=== PATIENT | female | born 1970 | race Caucasian/White ===

== ENCOUNTER → 2017-03-07 | Outpatient (CLI) | payer BC, OTHER ==
[~2017-03-07] MED LIST: MELA1TAB5 PO; OXYC-57 PO; TOPI50TA16 PO
--- NOTE | 2017-03-07 15:53 | DIAGNOSTIC IMAGING REPORT ---
L KNEE 1 OR 2 VIEWS CLINICAL HISTORY: LEFT KNEE PAIN pain COMPARISON: 03/06/2017 Discussion: Small joint effusion containing a small component of fat. Fracture of the proximal tibia is again noted but somewhat less visible on the current study. Alignment remains anatomic. IMPRESSION: Nondisplaced fracture proximal tibia. Small joint effusion. Alignment is anatomic. The above report was generated using voice recognition software. It may contain grammatical, syntax or spelling errors. Electronically signed by: Bebeto Martinez M.D. 03/07/2017 3:52 PM Dictated Date/Time: 03/07/2017 3:49 PM
== END | disposition home or self-care (01) ==
LOC: C.RDSM 15:09
PROVIDERS: ATTEND Physician Assistant
DX: S82.102A Unspecified fracture of upper end of left tibia, initial encounter for closed fracture (principal); X58.XXXA Exposure to other specified factors, initial encounter; M25.462 Effusion, left knee

== ENCOUNTER → 2017-04-06 | Outpatient (CLI) | payer BC ==
--- NOTE | 2017-04-06 13:22 | DIAGNOSTIC IMAGING REPORT ---
LEFT KNEE 4 VIEWS HISTORY: FRACTURE OF LEFT TIBIAL SPINE COMPARISON: Left knee 03/16/2017. FINDINGS: No change in the nondisplaced fracture within the proximal tibia which extends to the lateral tibial spine. The fracture line remains indistinct and demonstrates mild sclerosis consistent with a partially healed fracture. This demonstrates progressive healing. Small lipohemarthrosis is also improved. No dislocation. No radiopaque foreign bodies. IMPRESSION: 1. Progressive healing within the nondisplaced proximal tibial fracture. 2. Decrease in size in the small lipohemarthrosis. Electronically signed by: Jacky Read M.D. 04/06/2017 1:20 PM Dictated Date/Time: 04/06/2017 1:18 PM
== END | disposition home or self-care (01) ==
LOC: C.RDSM 13:55
PROVIDERS: ATTEND Physician Assistant
DX: S82.115D Nondisplaced fracture of left tibial spine, subsequent encounter for closed fracture with routine healing (principal); X58.XXXD Exposure to other specified factors, subsequent encounter

== ENCOUNTER → 2017-05-06 | Outpatient (CLI) | payer BC ==
[~2017-05-06] MED LIST changes: +CYCL10TA6 PO; +HYDR-5688 PO
--- NOTE | 2017-05-06 11:47 | DIAGNOSTIC IMAGING REPORT ---
L KNEE 4 OR MORE CLINICAL HISTORY: Follow-up fracture. COMPARISON: Left knee radiographs April 06, 2017. FINDINGS: Exam is mildly compromised by motion artifact. Lipohemarthrosis has resolved since prior exam of April 06, 2017. There has been progressive healing of the proximal left tibial fracture with a vertical band of sclerosis at fracture site. Fracture line through the lateral tibial spine persist. 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 IMPRESSION: 1. Progressive healing of the nondisplaced proximal left tibial fracture. Fracture line through base of lateral tibial spine remains evident. 2. Interval resolution of left knee joint effusion. 3. 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 Electronically signed by: Jack Walker M.D. 05/06/2017 11:45 AM Dictated Date/Time: 05/06/2017 11:42 AM
== END | disposition home or self-care (01) ==
LOC: C.RDSM 13:25
PROVIDERS: ATTEND Physician Assistant
DX: S82.102D Unspecified fracture of upper end of left tibia, subsequent encounter for closed fracture with routine healing (principal); X58.XXXD Exposure to other specified factors, subsequent encounter; M85.862 Other specified disorders of bone density and structure, left lower leg

== ENCOUNTER → 2017-06-03 | Outpatient (CLI) | payer BC, OTHER ==
[~2017-06-03] MED LIST changes: -CYCL10TA6 PO; -HYDR-5688 PO
--- NOTE | 2017-06-03 11:57 | DIAGNOSTIC IMAGING REPORT ---
L KNEE 4 OR MORE CLINICAL HISTORY: FRACTURE OF LEFT TIBIAL SPINE trauma. Pain. COMPARISON: 05/06/2017 DISCUSSION: Progressive osteopenia. Near complete healing of the proximal tibial fracture. No well-defined acute fracture lines current time. No significant joint effusion. There is no evidence for soft tissue swelling. IMPRESSION: Progressive osteopenia consistent with disuse osteopenia. Progressive healing of the proximal tibial fracture with no well-defined fracture line at the current time. The above report was generated using voice recognition software. It may contain grammatical, syntax or spelling errors. Electronically signed by: Bebeto Martinez M.D. 06/03/2017 11:55 AM Dictated Date/Time: 06/03/2017 11:54 AM
== END | disposition home or self-care (01) ==
LOC: C.RDSM 08:00
PROVIDERS: ATTEND Physician Assistant
DX: S82.115D Nondisplaced fracture of left tibial spine, subsequent encounter for closed fracture with routine healing (principal); X58.XXXD Exposure to other specified factors, subsequent encounter; M85.862 Other specified disorders of bone density and structure, left lower leg

== ENCOUNTER 2017-12-04 09:28 | Emergency (ER) | payer OTHER ==
[~2017-12-04] VITALS: Ht 170.2 cm; Wt 103.4 kg
[2017-12-04 09:35] VITALS: TEMP 36.9; Ht 170.2 cm; Wt 103.4 kg
[2017-12-04] MEDS ORDERED: HYDROCODONE/ACETAMIN 5/325MG TAB PO STA (10:03)
[2017-12-04] MEDS ORDERED: CYCLOBENZAPRINE HCL 10 MG TAB PO STA (10:03)
[2017-12-04] MEDS ORDERED: KETOROLAC TROMETHAMINE 60 MG/2 ML VIAL IM STA (10:03)
--- NOTE | 2017-12-04 10:43 | DIAGNOSTIC IMAGING REPORT ---
L-SPINE MIN 4 VIEWS ROUTINE HISTORY: Pain Low back pain COMPARISON: 08/10/2014 FINDINGS: There is no fracture. No subluxation. Moderate degenerative disc changes throughout. Moderate reactive osteophytic changes throughout. All findings are similar compared to the prior study. No new or interval finding. IMPRESSION: Moderate generalized degenerative change. No acute process. No change from the prior study. The above report was generated using voice recognition software. It may contain grammatical, syntax or spelling errors. Electronically signed by: Bebeto Martinez M.D. 12/04/2017 10:42 AM Dictated Date/Time: 12/04/2017 10:41 AM
--- NOTE | 2017-12-04 10:48 | EMERGENCY ROOM VISIT NOTE ---
ED Visit Note First contact with patient: 09:54 CHIEF COMPLAINT: Low back pain HISTORY OF PRESENT ILLNESS: This 47-year-old female presents to ER with chief complaint of low back pain. She states the pain started evening and got worse on Tuesday. She states then yesterday it was slightly better and then it got worse this morning. She describes it as achy and sharp pain across the entire lower back. She denies any pain radiating down her legs or any numbness and tingling in her lower legs. The patient denies a known injury or fall. The patient denies any history of chronic back pain. The patient has not taking anything for pain today. Patient denies any loss of bowel or bladder control. The patient denies any saddle anesthesia. The patient denies any urinary symptoms of frequency, urgency, dysuria or hematuria. REVIEW OF SYSTEMS: 6 system review was performed and was negative unless stated otherwise in history of present illness. PMH: The patient is healthy; migraines SOCIAL HISTORY: Patient lives with her . The patient admits to tobacco use but denies any alcohol use. PHYSICAL EXAM: Vital Signs were reviewed: Reviewed Nurse's notes and agree. GENERAL: 47-year-old female appears in no acute distress. MENTAL STATUS: Alert and oriented 3. LUMBAR SPINE: No gross bony abnormality noted. Patient is tender to palpation over the spinous processes. She is tender to palpation over the paravertebral regions bilaterally. She has full range of motion of the lumbar spine with pain elicited with flexion, extension. Muscle strength is 5 out of 5 bilateral lower extremities and symmetrical. NEURO: Patient is able to heel and toe walk without difficulty. I lateral patellar and Achilles reflexes are 2+. Sensation is intact to pinprick bilateral lower extremities. Negative straight leg raise bilaterally. EMERGENCY DEPARTMENT COURSE: The patient was evaluated. Patient's EMR medication list were reviewed. The patient was given Flexeril 10 mg p.o., Toradol 60 mg IM and Willard 5/325 mg 2 tablets p.o. for pain. X-ray of the lumbar spine was ordered interpreted by the radiologist and myself. DIAGNOSTICS:L-SPINE MIN 4 VIEWS ROUTINE HISTORY: Pain Low back pain COMPARISON: 08/10/2014 FINDINGS: There is no fracture. No subluxation. Moderate degenerative disc changes throughout. Moderate reactive osteophytic changes throughout. All findings are similar compared to the prior study. No new or interval finding. IMPRESSION: Moderate generalized degenerative change. No acute process. No change from the prior study. The above report was generated using voice recognition software. It may contain grammatical, syntax or spelling errors. Electronically signed by: Bebeto Martinez M.D. The patient was informed of the findings. The patient was discharged home in stable condition with her driving. DIAGNOSIS: Lumbar strain DISCHARGE INSTRUCTIONS AND TREATMENT: Ibuprofen 600 mg every 6 hours with food for pain. Take Willard as needed for more severe pain. Do not drive while taking the Willard. Take Flexeril as directed. Do not drive while taking the Flexeril. Avoid staying in any one position for an extended period of time. If symptoms persist or worsen, follow up with your family doctor for referral for additional testing. Problem List Medical Problems: (1) Diabetes Status: Chronic (2) Hypertension Status: Chronic (3) Migraine Status: Chronic Current/Historical Medications Scheduled Melatonin (Kp Melatonin), 1 TAB PO HS Topiramate (Topamax), 50 MG PO BID Scheduled PRN Oxycodone/Acetaminophen 5MG/325MG (Percocet 5MG/325MG), 1 TABLET PO Q6H PRN for Pain Allergies Coded Allergies: Amitriptyline (Unverified Allergy, Severe, RASH, 03/06/17) Gabapentin (Unverified Allergy, Mild, 03/06/17) Amoxicillin (Verified Allergy, Unknown, ., 03/06/17) Penicillins (Verified Allergy, Unknown, 03/06/17) Vital Signs Date Time Temp Pulse Resp B/P (MAP) Pulse Ox O2 Delivery O2 Flow Rate FiO2 12/04/17 09:35 36.9 101 16 122/84 96 Room Air Medications Administered Medications (Trade) Dose Ordered Sig/Althea Route Start Time Stop Time Status Last Admin Dose Admin Ketorolac Tromethamine (Toradol Inj) 60 mg NOW STAT IM 12/04/17 10:03 12/04/17 10:05 DC 12/04/17 10:20 60 MG Cyclobenzaprine HCl (Flexeril Tab) 10 mg NOW STAT PO 12/04/17 10:03 12/04/17 10:05 DC 12/04/17 10:19 10 MG Acetaminophen/ Hydrocodone Bitart (Willard 5/325 Tab) 2 tab NOW STAT PO 12/04/17 10:03 12/04/17 10:05 DC 12/04/17 10:19 2 TAB Departure Information Referrals Chun Terrell M.D. (PCP) Patient Instructions [facility]
[2017-12-04] MEDS ORDERED: CYCL10TA6 PO (10:49)
[2017-12-04] MEDS ORDERED: HYDR-5688 PO (10:51)
[2017-12-04 11:02] VITALS: BP 129/90; PULSE 80; O2SAT 95
== END 2017-12-04 11:05 | disposition home or self-care (01) ==
LOC: C.EDB 09:29
DX: S39.012A Strain of muscle, fascia and tendon of lower back, initial encounter (principal); X58.XXXA Exposure to other specified factors, initial encounter; I10 Essential (primary) hypertension; E11.9 Type 2 diabetes mellitus without complications; G43.909 Migraine, unspecified, not intractable, without status migrainosus; Z88.8 Allergy status to other drugs, medicaments and biological substances; Z88.0 Allergy status to penicillin; Z79.899 Other long term (current) drug therapy

== ENCOUNTER 2025-03-18 10:42 | Inpatient (IN) ==
--- NOTE | 2025-03-18 11:01 | Emergency Department Note ---
History of Present Illness General Chief complaint: Flu Like Symptoms Stated complaint: CHEST PAIN, HEADACHE, COUGH Time Seen by Provider: 03/18/25 10:48 History of Present Illness Maximum Pain Intensity: 6 This is a 54-year-old female that presents to the emergency department via private vehicle with complaints of "chest pain, headache, cough". Patient notes that she has been experiencing chest tightness ongoing now for quite some time and was diagnosed with an aortic aneurysm by CT this past summer. However, over the past few days notes an itchiness to the throat, feeling nervous, "shaky", cough, dyspnea and overall feeling unwell. She notes that her is sick and with similar symptoms. No hx of PE or MT per patient. No hemoptysis. Home Medications Medication Instructions Recorded Confirmed Type galcanezumab-gnlm 120 mg/mL 120 mg subcut MONTHLY 07/04/23 03/18/25 History subcutaneous pen injector (Emgality Pen) citalopram 20 mg tablet 20 mg PO DAILY #30 tabs 11/26/24 03/18/25 Rx duloxetine 60 mg capsule,delayed 60 mg PO DAILY 03/18/25 03/18/25 History release rosuvastatin 5 mg tablet 0 mg PO DAILY 03/18/25 03/18/25 History Allergies Allergy/AdvReac Type Severity Reaction Status Date / Time amitriptyline Allergy Severe RASH Unverified 12/06/24 07:32 gabapentin Allergy Mild Unverified 12/06/24 07:32 amoxicillin Allergy Unknown . Verified 12/06/24 07:32 Penicillins Allergy Unknown Verified 12/06/24 07:32 Past Med/Surg History Problem List (Updated 03/18/25 @ 16:41 by Yovani Varela PA-C) Adenovirus infection (Acute) Dyspnea (Acute) Pneumonia (Acute) Elevated hemoglobin Chronic pain of left knee Sacroiliitis Lumbar disc herniation with radiculopathy L4-5 central extrusion with superior migration HLD (hyperlipidemia) Class 2 obesity due to excess calories with body mass index (BMI) of 37.0 to 37.9 in adult Lumbar radiculopathy, chronic Hepatosplenomegaly Elevated fasting glucose Low back pain (Chronic) Migraine (Chronic) Medical History Spinal stenosis, lumbar region with neurogenic claudication Pyelonephritis Fracture of proximal end of tibia Epigastric abdominal pain Diarrhea Chest pain Acute bronchitis Abdominal pain Hypertension Social History Smoking Status: Current every day smoker Tobacco Type: Cigarettes Age Started Using Tobacco: 13; packs per day: 20; Second Hand Exposure: Yes; Do You Dip or Chew Tobacco: No; Hx Alcohol Use: No ([place] on a holiday) Hx Substance Use: No Preferred Language: Arabic Visual Impairment: No Limitations Hearing Ability: Normal Beliefs That Will Affect Care: None marital status: Current Living Situation: Spouse current occupational status: unemployed current occupation: house Feels Safe at Home: Yes Childhood Exposure to Second-Hand Smoke: Yes Diet: regular caffeine: Yes Dental Care, Regularly: Yes Physical Activity Frequency: 1-2 Times per Week Seatbelt Use: always Sunscreen Use: Yes Do you think of yourself as: straight/heterosexual Gender Identity: Female Assistive Devices: Other Review of Systems A total of 10 systems reviewed and were otherwise negative Physical Exam Vital Signs Vital Signs - 24 hr 03/18/25 10:44 03/18/25 11:20 03/18/25 12:06 Temperature 37.3 C Temperature Source Oral Pulse Rate 111 H 110 H 103 H Pulse Rate [Apical] Pulse Rhythm [Apical] Pulse Strength [Apical] Respiratory Rate 18 36 H Respiratory Effort / Characteristics Non-Labored Respiratory Depth Normal Respiratory Pattern Blood Pressure 137/71 Blood Pressure [Left Arm] Blood Pressure Mean 93 Blood Pressure Mean [Left Arm] Blood Pressure Position [Left Arm] Pulse Oximetry 96 95 Oxygen Delivery Method Room Air Room Air Sepsis Recent Fever Within 48 Hours No Sepsis New/Unexplained Change in Mental Status No Sepsis Action Taken by Nursing No Action Required 03/18/25 12:42 03/18/25 14:00 03/18/25 16:00 Temperature Temperature Source Pulse Rate Pulse Rate [Apical] 109 H 98 H 107 H Pulse Rhythm [Apical] Regular Regular Regular Pulse Strength [Apical] Normal Normal Normal Respiratory Rate 23 42 H 22 Respiratory Effort / Characteristics Spontaneous Spontaneous Non-Labored Spontaneous Respiratory Depth Normal Normal Respiratory Pattern Regular Blood Pressure Blood Pressure [Left Arm] 156/92 H 137/83 148/106 H Blood Pressure Mean Blood Pressure Mean [Left Arm] 113 101 120 Blood Pressure Position [Left Arm] Sitting Sitting Pulse Oximetry 94 96 96 Oxygen Delivery Method Room Air Room Air Room Air Sepsis Recent Fever Within 48 Hours Sepsis New/Unexplained Change in Mental Status Sepsis Action Taken by Nursing VITAL SIGNS - Vital signs and nursing notes were reviewed. Stable but tachycardic and tachypneic. No hypotension. GENERAL -54-year-old female appearing her stated age who is in no acute distress. Communicates well with provider and answers questions appropriately. SKIN - Without rashes. No meningeal or petechial rash. HEAD - NC/AT. EYES - PERRL with EOMI bilaterally. EARS - No deformities of external structures noted on gross examination bilaterally. External auditory canals without discharge or otorrhea. Tympanic membranes pearly cooper without retraction or bulging. No fluid or purulent material visualized behind the TM. Handle of malleus, umbo, cone of light, pars tensa/flaccid all easily visualized. NOSE - Midline and without cyanosis. No epistaxis or purulent drainage noted. Septum midline without deviation or septal hematoma noted. MOUTH/OROPHARYNX - Without perioral cyanosis. Buccal mucosa pink and moist and without leukoplakia. Tongue midline with equal elevation of palate bilaterally. No tonsillar hypertrophy, erythema, or exudates noted. Good dentition noted. NECK - Neck with FROM. Supple to palpation. No lymphadenopathy noted. No nuchal rigidity. LUNGS -mild diminished breath sounds bilaterally. No wheezing. CARDIAC - RRR EXTREMITIES - No clubbing or peripheral cyanosis. +5/5 strength noted in UE/LE bilaterally. NEUROLOGIC - Cranial nerves II through XII grossly intact. PSYCH -alert, oriented and pleasant on exam. Course Administered Medications Discontinued Medications Ceftriaxone Sodium (Rocephin) 2,000 mg in 50 mls @ 100 mls/hr IV NOW STA Stop: 03/18/25 14:30 Last Infusion: 03/18/25 15:20 Dose: Infused Documented By: orin Admin: 03/18/25 14:43 Dose: 100 mls/hr Documented By: orin Azithromycin (Zithromax) 500 mg in 255 mls @ 127.5 mls/hr IV NOW ONE Stop: 03/18/25 16:00 Last Admin: 03/18/25 15:13 Dose: 127.5 mls/hr Documented By: orin Sodium Chloride (Nss) 1,000 mls @ 999 mls/hr IV .Q1H1M ONE Stop: 03/18/25 15:02 Last Infusion: 03/18/25 15:49 Dose: Infused Documented By: orin Admin: 03/18/25 14:43 Dose: 999 mls/hr Documented By: orin Ioversol (Optiray 320 125ml) 112 ml IV ONCE ONE Stop: 03/18/25 13:02 Last Admin: 03/18/25 13:02 Dose: 112 ml Documented By: JOSEPH Medical Decision Making Laboratory Data 03/18/25 11:33 03/18/25 11:33 Lab Results 03/18/25 03/18/25 Range/Units 11:33 11:38 WBC 8.74 (4.8-10.8) K/ul RBC 4.93 (4.20-5.40) M/uL Hgb 15.8 (12.0-16.0) g/dl Hct 45.2 (37.0-47.0) % MCV 91.7 (80.0-100.0) fL MCH 32.0 (25.0-34.0) pg MCHC 35.0 (32.0-36.0) g/dL RDW Std Deviation 47.8 H (36.4-46.3) fL RDW Coeff of Linda 14.1 (11.5-14.5) % Plt Count 163 (130-400) K/uL MPV 10.4 (9.4-12.4) fL Immature Gran % (Auto) 0.6 % Neut % (Auto) 80.6 % Lymph % (Auto) 9.8 % [place] % (Auto) 8.6 % Eos % (Auto) 0.2 % Baso % (Auto) 0.2 % Neut # (Auto) 7.04 H (1.40-6.50) K/uL Lymph # (Auto) 0.86 L (1.20-3.40) K/uL [place] # (Auto) 0.75 H (0.11-0.59) K/uL Eos # (Auto) 0.02 (0.00-0.50) K/uL Baso # (Auto) 0.02 (0.00-0.20) K/uL Immature Gran # (Auto) 0.05 (0.01-0.20) K/uL PT 9.9 (9.0-12.0) Seconds INR 0.9 (0.9-1.1) APTT 27 (21-31) Seconds PTT Ratio 1.0 Sodium 135 L (136-145) mmol/L Potassium 3.9 (3.5-5.1) mmol/L Chloride 98 (98-107) mmol/L Carbon Dioxide 28 (21-32) mmol/L Anion Gap 9 (3-11) BUN 10 (6-23) mg/dl Creatinine 0.62 (0.6-1.2) mg/dl Est Cr Clr Drug Dosing 125.7 ml/min eGFR 105.10 BUN/Creatinine Ratio 16.1 (10-20) Glucose 96 (70-99(Fasting)) mg/dl Calcium 8.8 (8.6-10.3) mg/dl Magnesium 1.7 (1.7-2.4) mg/dl Total Bilirubin 0.4 (0.2-1.0) mg/dl AST 19 (13-39) U/L ALT 17 (7-52) U/L Alkaline Phosphatase 76 (34-104) U/L Troponin I High Sens 3.6 (0-14) pg/ml Total Protein 7.0 (6.0-8.3) gm/dl Albumin 3.9 (3.4-5.0) gm/dl Globulin 3.1 (2.5-4.0) gm/dl Albumin/Globulin Ratio 1.3 (0.9-2) Lipase 7 L (11-82) U/L Procalcitonin < 0.02 (0-0.5) ng/ml TSH 1.060 (0.300-4.500) uIu/ml Adenovirus (PCR) DETECTED A (NotDetected) B. pertussis DNA (PCR) Not Detected (NotDetected) B.parapertussis DNA PCR Not Detected (NotDetected) C. pneumoniae DNA (PCR) Not Detected (NotDetected) Coronavirus OC43 (PCR) Not Detected (NotDetected) Coronavirus HKU1 (PCR) Not Detected (NotDetected) Coronavirus 229E (PCR) Not Detected (NotDetected) SARS-CoV-2 (PCR) Not Detected (NotDetected) Coronavirus NL63 (PCR) Not Detected (NotDetected) Human Metapneumovir PCR Not Detected (NotDetected) Influenza Type A (PCR) Not Detected (NotDetected) Influenza Type B (PCR) Not Detected (NotDetected) M. pneumoniae (PCR) Not Detected (NotDetected) Parainfluenza 1 (PCR) Not Detected (NotDetected) Parainfluenza 2 (PCR) Not Detected (NotDetected) Parainfluenza 3 (PCR) Not Detected (NotDetected) Parainfluenza 4 (PCR) Not Detected (NotDetected) RSV (PCR) Not Detected (NotDetected) Entero/Rhino (PCR) Not Detected (NotDetected) Imaging Data Radiologist's Impression: Chest X-Ray 03/18/25 10:50 XR chest 1V portable CLINICAL HISTORY: chest pain COMPARISON STUDY: 11/20/2024 FINDINGS: Heart size and pulmonary vasculature are normal. No consolidation or pleural effusion. No pneumothorax. IMPRESSION: No acute findings. ACT 112: Negative or not required by law. Electronically signed by: Jonathan Sandhu M.D. 03/18/2025 11:27 AM Chest CTA 03/18/25 12:42 CT angio chest dissec wo/w con CLINICAL HISTORY: chest pain COMPARISON STUDY: 11/20/2024 FINDINGS: There are interval small areas of patchy consolidation anterior left lower lobe and medial right middle lobe which have morphology consistent with pneumonia. No other consolidation or pleural effusion seen. No pneumothorax. There is stable ectasia of the ascending thoracic aorta measuring 4.1 cm diameter which narrows smoothly to normal caliber of 2.3 cm at the proximal descending thoracic aorta. There is no thoracic aortic dissection. There are scattered atherosclerotic calcifications at the aorta. There are diffuse coronary artery calcifications. No pulmonary embolism seen. There is mild mediastinal and left hilar adenopathy. No pericardial effusion. Stable right adrenal adenoma measuring 2.7 cm. No acute osseous findings. IMPRESSION: 1. Early bilateral pneumonia with likely mild reactive adenopathy. Follow-up chest CT recommended in 3 months to make sure this completely resolves without underlying pulmonary nodule. 2. No other acute findings seen. Otherwise as described. ACT 112: Positive. There are findings on this exam that require communication between the performing entity and the patient following Patient Test Result Information Act ([place] Act 112) guidelines. Electronically signed by: Jonathan Sandhu M.D. 03/18/2025 1:37 PM MDM Narrative Patient was seen and evaluated as above in room B04b. Review was performed of triage nursing notes and vital signs. I did review pertinent previous visits and patient history. After obtaining a thorough history and physical examination the above work up was performed. Patient presents to us today with the above symptoms. Please see HPI for full details. In short, she has dyspnea, cough and feels unwell. She is tachypneic and tachycardic on arrival. EKG per my interpretation reveals normal sinus rhythm at a rate of 79 bpm. QTc 421. QRS 78. No ST elevation. Options of care were discussed with the patient. IV access was established. IV fluids ordered. Labs were drawn. No leukocytosis or concerning anemia. Coags normal. Mild hyponatremia 135. No evidence of kidney or liver failure. Troponin within normal range. Lipase not elevated. Procalcitonin undetectable at less than 0.02 making sepsis less likely. TSH was euthyroid state. BioFire positive for adenovirus which is felt to be contributory at this time. A chest x-ray was obtained and was overall negative. CTA of the chest was obtained to further assess the patient's chest pain, dyspnea in the setting of known aortic aneurysm. Results as above. Early bilateral pneumonia noted. No other acute findings. The ectasia of the ascending thoracic aorta was to be stable. Although the patient's pneumonia may be viral in nature, noting the patient's tachycardia and tachypneic state, will cover for potential superimposed bacterial infection. IV ceftriaxone and IV azithromycin ordered. I reviewed benefit versus risk of these antibiotics with the patient. No reported allergy to ceftriaxone or azithromycin. Benefit felt to outweigh risk. At this time I do believe that further evaluation and management the inpatient setting is warranted. Case discussed with hospitalist service. Please refer to further documentation regarding her stay GCS: 15 In the evaluation and treatment of this patient the following differential diagnoses were entertained: Pneumonia, MT, PE, dissection, among others Impression & Plan Pneumonia, Dyspnea, Adenovirus infection Discharge Plan Visit Data Chief Complaint: Flu Like Symptoms Stated Complaint: CHEST PAIN, HEADACHE, COUGH ED Provider: Sherman Yin ED Midlevel Provider: Yovani Varela Discharge Problem: Pneumonia, Dyspnea, Adenovirus infection Patient Disposition: Admitted As Inpatient Condition: Good Forms Stand Alone Forms: My [facility] Prescriptions Prescriptions: No Action Emgality Pen 120 mg/mL pen injector 120 mg subcut MONTHLY citalopram 20 mg tablet 20 mg PO DAILY Qty: 30 5RF duloxetine 60 mg capsule,delayed release(DR/EC) 60 mg PO DAILY rosuvastatin 5 mg tablet 0 mg PO DAILY Patient Comments: 03/18- last filled 08/02 30 day supply #30 Referrals Referrals: Dewayne Barillas DO [Primary Care Provider] -
--- NOTE | 2025-03-18 11:28 | XRay Report ---
XR chest 1V portable CLINICAL HISTORY: chest pain COMPARISON STUDY: 11/20/2024 FINDINGS: Heart size and pulmonary vasculature are normal. No consolidation or pleural effusion. No p neumothorax. IMPRESSION: No acute findings. ACT 112: Negative or not required by law. Electronically signed by: Jonathan Sandhu M.D. 03/18/2025 11:27 AM
[2025-03-18 11:49] LABS: Hematocrit (blood only) 45.2 % (37.0-47.0); Hemoglobin 15.8 g/dl (12.0-16.0); Immature Granulocytes # (auto) 0.05 K/uL (0.01-0.20); Immature Granulocytes % (auto) 0.6 %; Mean Corpuscular Hemoglobin 32.0 pg (25.0-34.0); Mean Corpuscular Volume 91.7 fL (80.0-100.0); Platelet Count 163 K/uL (130-400); RDW Standard Deviation 47.8 fL (36.4-46.3); Red Blood Count 4.93 M/uL (4.20-5.40); White Blood Count 8.74 K/ul (4.8-10.8)
[2025-03-18 12:03] LABS: INR 0.9 (0.9-1.1); Partial Thromboplastin Time 27 Seconds (21-31); Prothrombin Time 9.9 Seconds (9.0-12.0)
[2025-03-18 12:22] LABS: Albumin Level 3.9 gm/dl (3.4-5.0); Anion Gap 9.0 (3-11); Bilirubin,Total 0.4 mg/dl (0.2-1.0); Calcium 8.8 mg/dl (8.6-10.3); Carbon Dioxide 28.0 mmol/L (21-32); Chloride 98.0 mmol/L (98-107); Magnesium 1.7 mg/dl (1.7-2.4); Potassium 3.9 mmol/L (3.5-5.1); Sodium 135.0 mmol/L (136-145)
[2025-03-18 12:28] LABS: Alanine Aminotransferase 17.0 U/L (7-52); Albumin Globulin Ratio 1.3 (0.9-2); Alkaline Phosphatase 76.0 U/L (34-104); Blood Urea Nitrogen 10.0 mg/dl (6-23); Creatinine Clr Calc Pharmacy 125.7 ml/min; Globulin 3.1 gm/dl (2.5-4.0); Glucose 96.0 mg/dl (70-99(Fasting)); Lipase 7.0 U/L (11-82); Total Protein 7.0 gm/dl (6.0-8.3)
[2025-03-18 12:31] LABS: Thyroid Stimulating Hormone 1.06 uIu/ml (0.300-4.500)
[2025-03-18] MEDS: OPTIRAY 320 125ml IV ONE (13:02)
[2025-03-18 13:16] LABS: Chlamydia pneumoniae PCR Not Detected (NotDetected); Coronavirus 229E PCR Not Detected (NotDetected); Coronavirus CoV-2 (COVID19)PCR Not Detected (NotDetected); Coronavirus HKU1 PCR Not Detected (NotDetected); Coronavirus NL63 PCR Not Detected (NotDetected); Coronavirus OC43PCR Not Detected (NotDetected); Human Metapneumovirus PCR Not Detected (NotDetected); Parainfluenza Virus 1 PCR Not Detected (NotDetected); Parainfluenza Virus 2 PCR Not Detected (NotDetected); Parainfluenza Virus 3 PCR Not Detected (NotDetected); Parainfluenza Virus 4 PCR Not Detected (NotDetected); Respiratory Syncytial VirusPCR Not Detected (NotDetected); Rhinovirus/Enterovirus PCR Not Detected (NotDetected)
--- NOTE | 2025-03-18 13:39 | CT Scan Report ---
CT angio chest dissec wo/w con CLINICAL HISTORY: chest pain COMPARISON STUDY: 11/20/2024 FINDINGS: There are interval small areas of patchy consolidation anterior left lower lobe and medial right middle lobe which have morphology consistent with pneumonia. No other consolidation or pleural effusion seen. No pneumothorax. There is stable ectasia of the ascending thoracic aorta measuring 4.1 cm diameter which narrows smoothly to normal caliber of 2.3 cm at the proximal descending thoracic a nannette. There is no thoracic aortic dissection. There are scattered atherosclerotic calcifications at t he aorta. There are diffuse coronary artery calcifications. No pulmonary embolism seen. There is mild mediastinal and left hilar adenopathy. No pericardial effusion. Stable right adrenal adenoma measuri ng 2.7 cm. No acute osseous findings. IMPRESSION: 1. Early bilateral pneumonia with likely mild reactive adenopathy. Follow-up chest CT recommended in 3 months to make sure this completely resolves without underlying pulmonary nodule. 2. No other acute findings seen. Otherwise as described. ACT 112: Positive. There are findings on this exam that require communication between the performing entity and the patient following Patient Test Result Information Act ([place] Act 112) guidelines. Electronically signed by: Jonathan Sandhu M.D. 03/18/2025 1:37 PM
[2025-03-18] MEDS: SODIUM CHLORIDE 0.9% 1,000 ML IV ONE (14:43)
[2025-03-18] MEDS: cefTRIAXone SODIUM 2,000 MG/50 ML BAG IV STA (14:43)
[2025-03-18] MEDS: AZITHROMYCIN 500 MG/255 ML BAG IV ONE (15:13)
--- NOTE | 2025-03-18 16:45 | History & Physical Report ---
Date of Service March 18, 2025 Assessment & Plan (1) Pneumonia: (2) Adenovirus infection: Plan 54-year-old female presented with tachypnea and respiratory distress with a history of a adeno virus on [employer] and concern for multifocal pneumonia on imaging Patient is significant tobacco abuse and consider this to be possibly bronchial asthma or a COPD exacerbation with undiagnosed COPD #Multifocal pneumonia. Patiently placed on ceftriaxone and azithromycin to cover atypical organisms. Patient given Solu-Medrol due to her pulmonary exam showing fairly significant changes with decreased excursion and air exchange. Should be on isolation for respiratory adenovirus Patient has dyslipidemia will have her previously was statin held at this time #Depression patient continues on duloxetine escitalopram DVT prevention is Lovenox History of Present Illness Primary Care Provider: Dewayne Barillas DO 54-year-old female with a history of significant tobacco abuse who presents with chest pain headache and cough. Patient was significantly tachypneic and mildly hypoxic. Patient says that she has been ill since the end of February. Imaging did not show any significant focal lobar pneumonia but concerns for the beginning of bilateral multilobar pneumonia she did test positive for adenovirus on a [employer] viral screen. She subsequently feels improved was initiated on ceftriaxone and azithromycin in the emergency department. CT angiography of the emergency department shows no thoracic aortic dissection and the thoracic aorta measures 4.1 cm with diameter but no significant aneurysm Allergies Allergy/AdvReac Type Severity Reaction Status Date / Time amitriptyline Allergy Severe RASH Unverified 12/06/24 07:32 gabapentin Allergy Mild Unverified 12/06/24 07:32 amoxicillin Allergy Unknown . Verified 12/06/24 07:32 Penicillins Allergy Unknown Verified 12/06/24 07:32 Home Medications Medication Instructions Recorded Confirmed Type galcanezumab-gnlm 120 mg/mL 120 mg subcut MONTHLY 07/04/23 03/18/25 History subcutaneous pen injector (Emgality Pen) citalopram 20 mg tablet 20 mg PO DAILY #30 tabs 11/26/24 03/18/25 Rx duloxetine 60 mg capsule,delayed 60 mg PO DAILY 03/18/25 03/18/25 History release rosuvastatin 5 mg tablet 0 mg PO DAILY 03/18/25 03/18/25 History Past Med/Surg History Problem List (Updated 03/18/25 @ 16:41 by Yovani Varela PA-C) Adenovirus infection (Acute) Dyspnea (Acute) Pneumonia (Acute) Elevated hemoglobin Chronic pain of left knee Sacroiliitis Lumbar disc herniation with radiculopathy L4-5 central extrusion with superior migration HLD (hyperlipidemia) Class 2 obesity due to excess calories with body mass index (BMI) of 37.0 to 37.9 in adult Lumbar radiculopathy, chronic Hepatosplenomegaly Elevated fasting glucose Low back pain (Chronic) Migraine (Chronic) Medical History Spinal stenosis, lumbar region with neurogenic claudication Pyelonephritis Fracture of proximal end of tibia Epigastric abdominal pain Diarrhea Chest pain Acute bronchitis Abdominal pain Hypertension Social History Smoking Status: Current every day smoker Tobacco Type: Cigarettes Age Started Using Tobacco: 13; packs per day: 20; Second Hand Exposure: Yes; Do You Dip or Chew Tobacco: No; Hx Alcohol Use: No (MAybe on a holiday) Hx Substance Use: No Preferred Language: Malay Visual Impairment: No Limitations Hearing Ability: Normal Beliefs That Will Affect Care: None marital status: Current Living Situation: Spouse current occupational status: unemployed current occupation: house Feels Safe at Home: Yes Childhood Exposure to Second-Hand Smoke: Yes Diet: regular caffeine: Yes Dental Care, Regularly: Yes Physical Activity Frequency: 1-2 Times per Week Seatbelt Use: always Sunscreen Use: Yes Do you think of yourself as: straight/heterosexual Gender Identity: Female Assistive Devices: Other Review of Systems Review of Systems: Patient's respiratory distress is resolved upon my evaluation no headache, no visual changes no speech or swallowing issues no chest pain, pressure or palpitations Denies feeling short of breath is of a nonproductive cough no abdominal pain, nausea or vomiting, diarrhea or constipation no dysuria, hematuria or frequency no focal joint pain or swelling no back pain, CVA tenderness or radicular pain no bruising, bleeding or rashes no focal signs of weakness or numbness or altered sensation no complaints of anxiety or depression.. Physical Exam Physical Exam: The patient appeared well nourished and normally developed. Vital signs as documented. Head exam is normocephalic atraumatic Neck is without JVD, thyromegaly, or carotid bruits. Lungs are severely diminished with coarse breath sounds and decreased excursion and poor gas exchange Cardiac exam, Rhythm is regular.. No murmurs, rubs or gallops. Abdominal exam reveals normal bowel sounds, soft non tender, no masses Extremities are nonedematous and both pedal pulses are present Neurologic exam is alert and oriented, no focal loss of strength or sensation Skin is without bruises or rashes Psychologically is without concerns for anxiety or depression.. Results & Data Results & Data Vital Signs (Past 12 Hours) Vital Signs Temp Pulse Pulse Resp BP BP Pulse Ox 03/18/25 16:00 107 H 22 148/106 H 96 03/18/25 14:00 98 H 42 H 137/83 96 03/18/25 12:42 109 H 23 156/92 H 94 03/18/25 12:06 103 H 03/18/25 11:20 110 H 36 H 95 03/18/25 10:44 99.1 F 111 H 18 137/71 96 O2 Del Method 03/18/25 16:00 Room Air 03/18/25 14:00 Room Air 03/18/25 12:42 Room Air 03/18/25 12:06 03/18/25 11:20 Room Air 03/18/25 10:44 Room Air Laboratory Results Reviewed CBC and chemistry on presentation EKG sinus rhythm no acute changes Reviewed CT angiography of chest and regular plain chest x-ray Code Status & VTE Plan VTE Prophylaxis Plan VTE Prophylaxis will be ordered: Yes PG Care Time/CCT Total # of Minutes Spent Total Time Spent with Patient: Total time spent is greater than 50% in coordination of care (as documented) at patient's floor/unit and/or counseling patient: Coding Level of Care Code 77491 INT INP/OBS CARE 2/55MIN Diagnoses Pneumonia J18.9 Adenovirus infection B34.0
[2025-03-18] MEDS ORDERED: ONDANSETRON INJ 2 MG/ML 2 ML VIAL IV PRN (18:32)
[2025-03-18] MEDS: ENOXAPARIN INJ 40 MG/0.4 ML SYR SQ SCH (19:58)
[2025-03-18] MEDS: guaiFENesin 600 MG TABCR PO SCH (19:59)
[2025-03-18] MEDS: ACETAMINOPHEN 325 MG TAB PO PRN (19:59)
[2025-03-18] MEDS: ALBUT/IPRATROP 3MG/0.5MG NEB 3 ML VIAL NEB SCH (20:15)
[2025-03-19] MEDS: CODEINE SULFATE 30 MG TAB PO PRN (06:01)
[2025-03-19 06:21] LABS: Anion Gap 10.0 (3-11); Blood Urea Nitrogen 9.0 mg/dl (6-23); Calcium 9.4 mg/dl (8.6-10.3); Carbon Dioxide 25.0 mmol/L (21-32); Chloride 98.0 mmol/L (98-107); Creatinine Clr Calc Pharmacy 163.8 ml/min; Glucose 169.0 mg/dl (70-99(Fasting)); Potassium 4.0 mmol/L (3.5-5.1); Sodium 133.0 mmol/L (136-145)
[2025-03-19] MEDS: CITALOPRAM 20 MG TAB PO SCH (08:51)
[2025-03-19 11:14] VITALS: BP 130/77; TEMP 98.4
[2025-03-19] MEDS: AZITHROMYCIN 250 MG in DEXTROSE 5% 250 ML IV SCH (13:28)
[2025-03-19] MEDS: cefTRIAXone SODIUM 2,000 MG/50 ML BAG IV SCH (13:28)
[2025-03-19 14:48] VITALS: PULSE 91; RESP 18; O2SAT 92
--- NOTE | 2025-03-19 16:29 | Discharge Summary ---
Discharge Summary Date of Service March 19, 2025 Principal Dx & Hospital Course #1 = Principal Diagnosis (1) Pneumonia: (2) Adenovirus infection: Plan 54-year-old female presented with tachypnea and respiratory distress with a history of a adeno virus on [employer] and concern for multifocal pneumonia on imaging Patient is significant tobacco abuse and consider this to be possibly bronchial asthma or a COPD exacerbation with undiagnosed COPD #Multifocal pneumonia. Patiently placed on ceftriaxone and azithromycin to cover atypical organisms. Patient given Solu-Medrol due to her pulmonary exam showing fairly significant changes with decreased excursion and air exchange. respiratory adenovirus is detected. Patient had dramatic improvement patient wants to go home patient will be home on azithromycin oral, prednisone tapering dose, add albuterol MDI. Patient was educated at the bedside about smoking cessation although she says she is not going to stop and she was reinforced that she needs to have a pulmonary function test as I do believe she likely has undiagnosed COPD and would benefit from formal diagnosis. Patient has dyslipidemia will have her previously was statin #Depression patient continues on duloxetine escitalopram Notes For Next Care Provider Patient is scheduled outpatient PFTs once improved Continued smoking cessation counseling Admission HPI Per Admitting Provider 54-year-old female with a history of significant tobacco abuse who presents with chest pain headache and cough. Patient was significantly tachypneic and mildly hypoxic. Patient says that she has been ill since the end of February. Imaging did not show any significant focal lobar pneumonia but concerns for the beginning of bilateral multilobar pneumonia she did test positive for adenovirus on a [employer] viral screen. She subsequently feels improved was initiated on ceftriaxone and azithromycin in the emergency department. CT angiography of the emergency department shows no thoracic aortic dissection and the thoracic aorta measures 4.1 cm with diameter but no significant aneurysm Discharge Exam Good excursion lungs are actually clear today very little cough Discharge Plan Discharge Items Patient Disposition: Home - Self-Care Reason For Visit: MULTIFOCAL PNEUMONIA Discharge Diagnosis: pneumonia adenovirus infection Condition on Discharge: Good Activity: Resume your previous activity Non-emergency contact: Primary Care Provider Call non-emergency contact if: your symptoms worsen Follow-up/Referrals: Dewayne Barillas DO [Primary Care Provider] - 03/25/25 1:00 pm Diet: Regular Addtl Attending Provider Instructions: strongl consider stop smoking speak to your family doctor about follow up with pulmonary function testing once you are recovered Pending Studies at Discharge: No Stand-Alone Forms: [facility], Smoking Cessation Medications and DC Order Prescriptions: New prednisone 10 mg tablet 10 mg PO DIRECTED Qty: 40 0RF Rx Instructions: 4 a day x 4 d->3 a day x 4 d->2 a day x 4 d->1 a day x 4 d then stop azithromycin 250 mg tablet 250 mg PO DAILY 4 Days Qty: 4 0RF Rx Instructions: start on day 2 of therapy albuterol sulfate 1.25 mg/3 mL solution for nebulization 1.25 mg inhalation Q6H PRN (Reason: bronchospasm) Qty: 75 0RF albuterol sulfate 90 mcg/actuation HFA aerosol inhaler 1 inh inhalation Q6H PRN (Reason: shortness of breath or wheezing) Qty: 6.7 0RF Rx Instructions: solution was sent in error Continued Emgality Pen 120 mg/mL pen injector 120 mg subcut MONTHLY citalopram 20 mg tablet 20 mg PO DAILY Qty: 30 5RF duloxetine 60 mg capsule,delayed release(DR/EC) 60 mg PO DAILY rosuvastatin 5 mg tablet 0 mg PO DAILY Patient Comments: 03/18- last filled 08/02 30 day supply #30 Discharge Orders: Discharge Order (Routine); Ordered 03/19/25 Ordered By: Mau Keen/Other Patient Handouts: What Is Pneumonia?, Preventing Pneumonia, Treating Pneumonia, When You Have Pneumonia Admission Data Admit Date/Time: 03/18/25 16:36 Attending Provider: Mau Jordan Admit Provider: Mau Jordan Primary Care Provider: Dewayne Barillas Other Providers: Mau Jordan Other Interventions: Discharge Summary Assessment (RN) Last Done: 03/19/25 14:36 Hospital Stay Data Consultations 03/18/25 14:42 ED Decision to Admit Stat Diagnostic Imagining Performed 03/18/25 12:42 CT angio chest dissec wo/w con Stat Pending Results Patient Have Any Pending Studies at Discharge: No Discharge Instructions Given to Patient (Per Discharging Provider) strongl consider stop smoking speak to your family doctor about follow up with pulmonary function testing once you are recovered Total Time Total Time Spent Total Time Spent (In Minutes): I personally have spent greater than 30 minutes of time on the patient discharge today including review of tests, documentation, exam, and discussing treatment plan moving forward with the patient. Coding Level of Care Code 92352 INP/OBS DISCH >30 MIN Diagnoses Pneumonia J18.9 Adenovirus infection B34.0
--- NOTE | 2025-03-21 16:25 | Electrocardiogram Report ---
Test Reason : Blood Pressure : */* mmHG Vent. Rate : 108 BPM Atrial Rate : 108 BPM P-R Int : 130 ms QRS Dur : 72 ms QT Int : 330 ms P-R-T Axes : 49 35 53 degrees QTcB Int : 442 ms Sinus tachycardia Otherwise normal ECG When compared with ECG of 20-Nov-2024 19:01, Nonspecific T wave abnormality now evident in Anterior leads Confirmed by Jose Pate ([id number]) on 03/21/2025 4:25:04 PM Referred By: REFERRED SELF Confirmed By: Jose Pate
== END 2025-03-19 15:30 | disposition home or self-care (01) | DRG 195 ==
LOC: SUATTDRO → ED 10:42 → 4W 16:36